=== PATIENT | female | born 1955 | race African-American/Black ===

== ENCOUNTER 2018-01-18 19:53 | Emergency (ER) | payer OTHER, MEDICAID ==
[~2018-01-18] VITALS: Ht 157.5 cm; Wt 69.0 kg
[2018-01-18] MEDS ORDERED: IBUPROFEN 600MG TABLET PO ONE (21:15)
[2018-01-18 23:20] VITALS: BP 134/64
== END 2018-01-18 23:27 | disposition home or self-care (01) ==
LOC: ER 20:58
DX: M25.511 Pain in right shoulder (principal); X50.0XXA Overexertion from strenuous movement or load, initial encounter; Y93.89 Activity, other specified; Y92.69 Other specified industrial and construction area as the place of occurrence of the external cause
CPT/HCPCS: 73030; 99284